=== PATIENT | female | born 1990 ===

== ENCOUNTER 2020-08-16 07:17 | Inpatient (IN) | payer OTHER ==
[~2020-08-16] VITALS: Ht 160 cm; Wt 2.7 kg
[~2020-08-16 07:17] MED LIST: PRENATAL TABLE1 EAC1 PO
[2020-08-16] MEDS ORDERED: PRENATAL TABLE1 EAC1 PO (09:50)
== END 2020-08-19 14:19 | disposition home or self-care (01) | DRG 785 ==
LOC: O/R 07:17 → LDR 07:17 → O/R 17:59 → OB/GYN 20:57
PROVIDERS: ADMIT Obstetrics & Gynecology; ATTEND Obstetrics & Gynecology
PROC: 0UB70ZZ Excision of Bilateral Fallopian Tubes, Open Approach (ICD-10-PCS; 2020-08-16)
PROC: 3E033VJ Introduction of Other Hormone into Peripheral Vein, Percutaneous Approach (ICD-10-PCS; 2020-08-16)
PROC: 4A1HXFZ Monitoring of Products of Conception, Cardiac Rhythm, External Approach (ICD-10-PCS; 2020-08-16)
PROC: 10D00Z1 Extraction of Products of Conception, Low, Open Approach (ICD-10-PCS; principal; 2020-08-16 18:15)
DX: O82 Encounter for cesarean delivery without indication (principal); O34.211 Maternal care for low transverse scar from previous cesarean delivery; Z3A.39 39 weeks gestation of pregnancy; Z37.0 Single live birth; Z30.2 Encounter for sterilization